=== PATIENT | female | born 1930 | race Caucasian/White ===

== ENCOUNTER 2018-04-18 14:34 | Inpatient (IN) | payer MEDICARE, OTHER, MEDICAID ==
[2018-04-18] MEDS: LIDOCAINE 1% (MPF) 30 ML INJ INJ (14:45)
[2018-04-18 15:06] LABS: ADD MAN DIFF? NO
[2018-04-18 15:36] LABS: ALANINE AMINOTRANSFERASE 49 IU/L (13-69); ALBUMIN 4.8 g/dl (3.3-4.9); ALBUMIN/GLOBULIN RATIO 2.18; ALKALINE PHOSPHATASE 144 IU/L (42-121); ANION GAP 17 (5-13); ASPARTATE AMINO TRANSFERASE 37 IU/L (15-46); BILIRUBIN,INDIRECT 0.3 mg/dl (0-1.1); BILIRUBIN,TOTAL 0.3 mg/dl (0.2-1.3); BLOOD UREA NITROGEN 35 mg/dl (7-20); CALCIUM 10.2 mg/dl (8.4-10.2); CARBON DIOXIDE 22 mmol/L (21-31); CHLORIDE 96 mmol/L (97-110); CREATININE 0.82 mg/dl (0.44-1.00); LIPASE 175 U/L (23-300); POTASSIUM 5.8 mmol/L (3.5-5.1); SODIUM 135 mmol/L (135-144)
[2018-04-18 15:48] LABS: GLUCOSE 884 mg/dl (70-220)
[2018-04-18 15:54] LABS: ABNORMAL IP MESSAGE 1; HEMATOCRIT 40.1 % (37.0-47.0); HEMOGLOBIN 13.2 g/dl (12.0-16.0); LYMPHOCYTES # 0.3 10^3/ul (0.8-2.9); LYMPHOCYTES % 3.2 % (15.0-51.0); MEAN CORPUSCULAR HGB CONC 32.9 g/dl (32.0-37.0); MEAN CORPUSCULAR VOLUME 88.1 fl (82.0-101.0); MEAN PLATELET VOLUME 13.1 fl (7.4-10.4); MONOCYTE # 0.1 10^3/ul (0.3-0.9); MONOCYTES % 0.9 % (0.0-11.0); NEUTROPHIL # 9.3 10^3/ul (1.6-7.5); NEUTROPHILS % 95.6 % (39.0-77.0); PLATELET COUNT 216 10^3/UL (140-415); RED BLOOD COUNT 4.55 10^6/ul (4.20-5.40); RED CELL DISTRIBUTION WIDTH 13.9 % (11.5-14.5)
[2018-04-18 15:54] LABS: WHITE BLOOD COUNT 9.7 10^3/ul (4.8-10.8)
[2018-04-18 15:56] LABS: POSITIVE DIFF @See below
[2018-04-18] MEDS: LACTATED RINGER'S 1,000 ML IV (15:56)
[2018-04-18 16:00] LABS: ADD UMIC NO; UR ASCORBIC ACID NEGATIVE (NEGATIVE); UR BILIRUBIN (Dip) NEGATIVE (NEGATIVE); UR BLOOD (Dip) NEGATIVE (NEGATIVE); UR CLARITY CLEAR (CLEAR); UR COLOR STRAW (YELLOW); UR GLUCOSE (Dip) 3+ mg/dL (NEGATIVE); UR KETONES (Dip) 1+ mg/dL (NEGATIVE); UR LEUKOCYTE ESTERASE (Dip) NEGATIVE Leu/ul (NEGATIVE); UR NITRITE (Dip) NEGATIVE (NEGATIVE); UR SPECIFIC GRAVITY (Dip) 1.028 (1.003-1.030); UR TOTAL PROTEIN (Dip) NEGATIVE (NEGATIVE); UR UROBILINOGEN (Dip) NEGATIVE (NEGATIVE)
[2018-04-18] MEDS: SOD CHLORIDE 0.9% 1,000 ML IV ×4 (16:05→20:11)
[2018-04-18 16:18] LABS: MAGNESIUM 2.2 mg/dl (1.7-2.5)
[2018-04-18 16:18] LABS: PHOSPHORUS 4.9 mg/dl (2.5-4.9)
[2018-04-18 16:24] LABS: HEMOGLOBIN A1C 11.1 % (0-5.9)
[2018-04-18] MEDS: DIPHTH/TET/ACEL PERTUSS (ADULT) 0.5 ML VIAL IM* (16:26)
[2018-04-18] MEDS: INSULIN LISPRO 100 UNIT/ML VIAL SC (16:28)
[2018-04-18 16:30] LABS: TROPONIN-I < 0.012 ng/ml (0.000-0.120)
[2018-04-18 16:57] LABS: AADO2 Venous 68.6 mmHg; MODE ROOM AIR; MetHgb Venous 1.6 %; Site VENOUS LINE; Venous COHb 0.3 %; Venous Fraction OxyHgb 35.8 %; Venous Oxygen Sat 36.5 mmHG (55.0-75.0); Venous Total Hemglobin 12.7 g/dl
[2018-04-18 18:08] LABS: ANION GAP 14 (5-13); BLOOD UREA NITROGEN 30 mg/dl (7-20); CALCIUM 9.3 mg/dl (8.4-10.2); CARBON DIOXIDE 24 mmol/L (21-31); CHLORIDE 103 mmol/L (97-110); CREATININE 0.69 mg/dl (0.44-1.00); POTASSIUM 4.7 mmol/L (3.5-5.1); SODIUM 141 mmol/L (135-144)
[2018-04-18 18:10] LABS: GLUCOSE 566 mg/dl (70-220)
[2018-04-18] MEDS ORDERED: INSULIN REGULAR, HUMAN 100 UNIT/1 ML 3ML VIAL IV (19:00)
[2018-04-18] MEDS ORDERED: NACL 0.9% 3 ML SYG IV (19:00)
[2018-04-18] MEDS ORDERED: DOCUSATE SODIUM 100 MG CAP PO (19:00)
[2018-04-18] MEDS ORDERED: CAPSAICIN 0.025% 60 GM CR TOP (19:00)
[2018-04-18] MEDS ORDERED: MAGNESIUM HYDROXIDE 30ML CUP PO (19:00)
[2018-04-18] MEDS ORDERED: ONDANSETRON 4 MG INJ IV (19:00)
[2018-04-18] MEDS ORDERED: GLUCOSE GEL 15 GRAM TUBE BUCCAL (19:30)
[2018-04-18] MEDS ORDERED: GLUCOSE GEL 15 GRAM TUBE PO ×2 (19:30)
[2018-04-18] MEDS ORDERED: GLUCAGON 1 MG INJ IM (19:30)
[2018-04-18] MEDS ORDERED: DEXTROSE 50% 50 ML SYRINGE IV ×2 (19:30)
[2018-04-18 19:43] LABS: THYROID STIMULATING HORMONE 0.476 MIU/L (0.465-4.680)
[2018-04-18] MEDS: INSULIN GLARGINE [LANTus] (100 UNITS/ML) SYG SC (22:28)
[2018-04-18] MEDS: INSULIN ASPART [NOVOLOG] 3 ML PEN SC ×2 (22:29)
[2018-04-19] MEDS ORDERED: ACCU-CHEK XX (02:00)
[2018-04-19] MEDS: ACCU-CHEK XX (02:01)
[2018-04-19 05:51] LABS: ADD MAN DIFF? NO
[2018-04-19 06:04] LABS: BASOPHILS % 0.1 % (0.0-2.0); EOSINOPHILS # 0.1 10^3/ul (0.0-0.5); EOSINOPHILS % 0.7 % (0.0-7.0); HEMATOCRIT 30.5 % (37.0-47.0); HEMOGLOBIN 10.1 g/dl (12.0-16.0); LYMPHOCYTES # 1.7 10^3/ul (0.8-2.9); LYMPHOCYTES % 17.5 % (15.0-51.0); MEAN CORPUSCULAR HEMOGLOBIN 29.7 pg (29.0-33.0); MEAN CORPUSCULAR HGB CONC 33.1 g/dl (32.0-37.0); MEAN CORPUSCULAR VOLUME 89.7 fl (82.0-101.0); MEAN PLATELET VOLUME 12.5 fl (7.4-10.4); MONOCYTE # 0.6 10^3/ul (0.3-0.9); MONOCYTES % 6.2 % (0.0-11.0); NEUTROPHIL # 7.2 10^3/ul (1.6-7.5); NEUTROPHILS % 75.2 % (39.0-77.0); PLATELET COUNT 157 10^3/UL (140-415); RED CELL DISTRIBUTION WIDTH 14.1 % (11.5-14.5)
[2018-04-19 06:04] LABS: WHITE BLOOD COUNT 9.6 10^3/ul (4.8-10.8)
[2018-04-19 06:50] LABS: ALBUMIN 2.9 g/dl (3.3-4.9); ANION GAP 6 (5-13); BLOOD UREA NITROGEN 20 mg/dl (7-20); CALCIUM 8.5 mg/dl (8.4-10.2); CARBON DIOXIDE 26 mmol/L (21-31); CHLORIDE 107 mmol/L (97-110); CHOL/HDL RATIO 4.3 RATIO; CHOLESTEROL 143 mg/dl (100-200); CREATININE 0.52 mg/dl (0.44-1.00); GLUCOSE 168 mg/dl (70-220); HDL CHOLESTEROL 33 mg/dl (33-92); LDL CHOLESTEROL,CALCULATED 83 mg/dl; MAGNESIUM 1.9 mg/dl (1.7-2.5); PHOSPHORUS 2.9 mg/dl (2.5-4.9); POTASSIUM 3.6 mmol/L (3.5-5.1); SODIUM 139 mmol/L (135-144); TRIGLYCERIDES 137 mg/dl (0-149)
[2018-04-19] MEDS: SOD CHLORIDE 0.9% 1,000 ML IV (07:08)
[2018-04-19] MEDS: INSULIN ASPART [NOVOLOG] 3 ML PEN SC ×4 (07:56→22:05)
[2018-04-19] MEDS ORDERED: INSULIN GLARGINE [LANTus] (100 UNITS/ML) SYG SC (08:00)
[2018-04-19] MEDS: ENOXAPARIN 40 MG/0.4 ML SYG SC (09:00)
[2018-04-19] MEDS: ACETAMINOPHEN 325 MG TAB PO (12:15)
[2018-04-19] MEDS: POTASSIUM CHLORIDE (SR) 20 MEQ TAB PO (12:16)
[2018-04-19] MEDS: LINAGLIPTIN 5 MG TABLET PO (12:17)
[2018-04-19] MEDS: INSULIN GLARGINE [LANTus] (100 UNITS/ML) SYG SC (22:04)
[2018-04-20] MEDS: ACCU-CHEK XX (02:38)
[2018-04-20 06:12] LABS: ADD MAN DIFF? NO
[2018-04-20 06:27] LABS: WHITE BLOOD COUNT 7.5 10^3/ul (4.8-10.8)
[2018-04-20 06:27] LABS: BASOPHILS % 0.1 % (0.0-2.0); EOSINOPHILS # 0.2 10^3/ul (0.0-0.5); EOSINOPHILS % 2.1 % (0.0-7.0); HEMATOCRIT 31.5 % (37.0-47.0); HEMOGLOBIN 10.3 g/dl (12.0-16.0); LYMPHOCYTES # 1.4 10^3/ul (0.8-2.9); LYMPHOCYTES % 18.6 % (15.0-51.0); MEAN CORPUSCULAR HEMOGLOBIN 29.4 pg (29.0-33.0); MEAN CORPUSCULAR HGB CONC 32.7 g/dl (32.0-37.0); MEAN PLATELET VOLUME 12.6 fl (7.4-10.4); MONOCYTE # 0.4 10^3/ul (0.3-0.9); MONOCYTES % 5.9 % (0.0-11.0); NEUTROPHIL # 5.4 10^3/ul (1.6-7.5); PLATELET COUNT 145 10^3/UL (140-415); RED CELL DISTRIBUTION WIDTH 14.6 % (11.5-14.5)
[2018-04-20 07:22] LABS: ALBUMIN 2.9 g/dl (3.3-4.9); ANION GAP 4 (5-13); BLOOD UREA NITROGEN 15 mg/dl (7-20); CALCIUM 8.4 mg/dl (8.4-10.2); CARBON DIOXIDE 26 mmol/L (21-31); CHLORIDE 107 mmol/L (97-110); CREATININE 0.58 mg/dl (0.44-1.00); GLUCOSE 229 mg/dl (70-220); MAGNESIUM 1.8 mg/dl (1.7-2.5); PHOSPHORUS 3.6 mg/dl (2.5-4.9); POTASSIUM 3.7 mmol/L (3.5-5.1); SODIUM 137 mmol/L (135-144)
[2018-04-20] MEDS: INSULIN ASPART [NOVOLOG] 3 ML PEN SC ×2 (08:00→12:11)
[2018-04-20] MEDS: LINAGLIPTIN 5 MG TABLET PO (08:02)
[2018-04-20] MEDS: ENOXAPARIN 40 MG/0.4 ML SYG SC (08:15)
[2018-04-20] MEDS: REPAGLINIDE 1 MG TAB PO (12:18)
[2018-04-20] MEDS ORDERED: INSULIN GLARGINE [LANTus] (100 UNITS/ML) SYG SC (21:00)
== END 2018-04-20 17:03 | disposition home health service (06) | DRG 637 ==
LOC: 6WM 04-20 09:10 → E/R 14:34 → 6WM 17:47
PROVIDERS: Internal Medicine
DX: E11.00 Type 2 diabetes mellitus with hyperosmolarity without nonketotic hyperglycemic-hyperosmolar coma (NKHHC) (principal); G93.41 Metabolic encephalopathy; J98.11 Atelectasis; E11.65 Type 2 diabetes mellitus with hyperglycemia; E86.0 Dehydration; E78.5 Hyperlipidemia, unspecified; M25.561 Pain in right knee; Z79.4 Long term (current) use of insulin; Z79.84 Long term (current) use of oral hypoglycemic drugs; Z91.81 History of falling; Z90.710 Acquired absence of both cervix and uterus
CPT/HCPCS: 36415; 70450; 71045; 80048; 80053; 80061; 80069; 81003; 82803; 82962; 83036; 83690; 83735; 84100; 84443; 84484; 85025; 87086; 90471; 93005; 96360; 96372; 97163; 97166; 97535; 99291-25

== ENCOUNTER 2018-04-20 17:53 | Emergency (ER) | payer MEDICARE, OTHER ==
[2018-04-20] MEDS: HYDROmorphONE 2 MG/ML SYG IV ×2 (18:32→18:57)
[2018-04-20] MEDS: ONDANSETRON 4 MG INJ IV ×3 (18:32→23:32)
[2018-04-20 19:02] LABS: ANION GAP 7 (5-13); BLOOD UREA NITROGEN 17 mg/dl (7-20); CALCIUM 8.8 mg/dl (8.4-10.2); CARBON DIOXIDE 24 mmol/L (21-31); CHLORIDE 102 mmol/L (97-110); CREATININE 0.77 mg/dl (0.44-1.00); GLUCOSE 193 mg/dl (70-220); POTASSIUM 3.6 mmol/L (3.5-5.1); SODIUM 133 mmol/L (135-144)
[2018-04-20] MEDS ORDERED: IOHEXOL 300MG/ML 150 ML BTL (19:26)
[2018-04-20] MEDS ORDERED: PROPOFOL 200 MG INJ IV (20:30)
[2018-04-20] MEDS: morphine 4 MG/ML VIAL IV (23:32)
[2018-04-20] MEDS: CEFTRIAXONE 1 GM/50 ML (PMX) 50 ML IVPB (23:32)
[2018-04-21] MEDS: SOD CHLORIDE 0.9% 100 ML (00:07)
== END 2018-04-21 01:50 | disposition short-term general hospital (02) ==
LOC: E/R 04-21 01:50
DX: S27.0XXA Traumatic pneumothorax, initial encounter (principal); S22.42XA Multiple fractures of ribs, left side, initial encounter for closed fracture; E11.9 Type 2 diabetes mellitus without complications; R51 Headache; V43.62XA Car passenger injured in collision with other type car in traffic accident, initial encounter; Z79.4 Long term (current) use of insulin
CPT/HCPCS: 32551; 70450; 71045; 71250; 72125; 74177; 80048; 94770; 96374; 96375; 96376; 99291-25